=== PATIENT | male | born 1950 | race African-American/Black ===

== ENCOUNTER → 2023-05-04 | Day surgery (SDC) | payer MEDICARE, MEDICAID ==
[2023-05-04] VITALS (14 sets, daily range): BP systolic 93–122; BP diastolic 52–74
[~2023-05-04] VITALS: Ht 172.7 cm; Wt 68.0 kg
[~2023-05-04] MED LIST: FENTANYL CITRATE/PF 50MCG/ML 2ML VIAL IV NR; FENTANYL CITRATE/PF 50MCG/ML 2ML VIAL ONE; IOHEXOL-300 50 ML BOTTLE IV ONE; LIDOCAINE HCL 1% 10 MG/ML 10ML VIAL ONE
== END | disposition home or self-care (01) ==
LOC: RAD 05-02 08:09 → EDSTATUS 05-02 08:18 → RAD 05-02 08:34
PROVIDERS: ATTEND Urology
DX: C61 Malignant neoplasm of prostate (principal); N13.39 Other hydronephrosis; Z79.899 Other long term (current) drug therapy; Z98.890 Other specified postprocedural states; Z88.8 Allergy status to other drugs, medicaments and biological substances
CPT/HCPCS: 50693; C1725; C1769; C2625; J3010; J3490; Q9967; Z7610; 99152; 99153; G0500